=== PATIENT | male | born 1980 | race African-American/Black ===

== ENCOUNTER 2019-01-23 14:56 | Inpatient (IN) | payer MEDICAID ==
[~2019-01-23] VITALS: Ht 167.6 cm; Wt 68.8 kg
[2019-01-23 15:56] VITALS: BP 115/71
[2019-01-23 17:19] VITALS: BP 138/80
[2019-01-23] MEDS: HALOPERIDOL 5 MG TABLET PO PRN (17:27)
[2019-01-23] MEDS: LORazepam 2 MG TABLET PO PRN (17:27)
[2019-01-23] MEDS ORDERED: NICOTINE 14 MG/24 HOUR PATCH TD PRN (17:30)
[2019-01-23] MEDS ORDERED: GuaiFENesin/D-METHORPHAN [SUGAR-FREE] 200-20MG/10 ML SYRUP UDCUP PO PRN (17:30)
[2019-01-23] MEDS ORDERED: ALBUTEROL SULFATE HFA 90 MCG/PUFF 8 GM INHALER IH PRN (17:30)
[2019-01-23] MEDS ORDERED: LOPERAMIDE HCL 2 MG CAPSULE PO PRN (17:30)
[2019-01-23] MEDS ORDERED: ONDANSETRON HCL 4 MG TABLET PO PRN (17:30)
[2019-01-23] MEDS ORDERED: ACETAMINOPHEN 325 MG TABLET PO PRN (17:30)
[2019-01-23] MEDS ORDERED: PETROLATUM,WHITE 28 GM JELLY TP PRN (17:30)
[2019-01-23] MEDS ORDERED: MAGNESIUM HYDROXIDE SUSPENSION 30 ML UDCUP PO PRN (17:30)
[2019-01-23] MEDS ORDERED: DOCUSATE SODIUM 100 MG CAPSULE PO PRN (17:30)
[2019-01-23] MEDS ORDERED: CloNIDine HCL 0.1 MG TABLET PO PRN (17:30)
[2019-01-23] MEDS ORDERED: MAG HYDROX/AL HYDROX/SIMETH ES 30 ML SUSPENSION UDCUP PO PRN (17:30)
[2019-01-24 06:57] VITALS: BP 107/63
[2019-01-24 08:12] LABS: EOSINOPHILS % (AUTO) 2.5 % (1.0-6.0); HEMATOCRIT 41.3 % (41-53); HEMOGLOBIN 13.3 g/dL (13.5-17.5); LYMPHOCYTES # (AUTO) 1.9 K/uL (1.0-4.8); LYMPHOCYTES % (AUTO) 28.9 % (22.0-44.0); MEAN CORPUSCULAR HEMOGLOBIN 28.5 pg (26.0-34.0); MEAN CORPUSCULAR HGB CONC 32.3 G/dL (31.0-37.0); MEAN CORPUSCULAR VOLUME 88 fL (80-100); MONOCYTES # (AUTO) 0.6 K/uL (0.1-1.0); MONOCYTES % (AUTO) 8.7 % (2.0-9.0); NEUTROPHILS # (AUTO) 3.9 K/uL (1.8-7.7); NEUTROPHILS % (AUTO) 58.9 % (40.0-70.0); PLATELET COUNT (AUTO) 242 K/uL (150-450); RED BLOOD CELL COUNT(AUTO) 4.67 MIL/uL (4.50-5.90); RED CELL DISTRIBUTION WIDTH 14.6 % (11.5-14.5)
[2019-01-24 08:25] LABS: HEMOGLOBIN A1C 5.8 % (4.5-6.2)
[2019-01-24 08:54] LABS: ALANINE AMINOTRANSFERASE 19 U/L (12-78); ALBUMIN 3.6 g/dL (3.4-5.0); ALKALINE PHOSPHATASE 57 U/L (46-116); ANION GAP 7 mmol/L (8-16); ASPARTATE AMINOTRANSFERASE 18 U/L (15-37); BILIRUBIN,TOTAL 0.4 mg/dL (0.1-1.0); CALCIUM, TOTAL 9.3 mg/dL (8.8-10.5); CARBON DIOXIDE 28 mmol/L (22-29); CHLORIDE 105 mmol/L (98-107); CHOL/HDL RATIO 3.3 (4.2-7.3); CHOLESTEROL 119 mg/dL (131-200); CREATININE 0.88 mg/dL (0.60-1.30); GLOMERULAR FILTR. RATE CALC > 60 mL/min (>60); GLUCOSE,RANDOM 77 mg/dL (70-110); HDL CHOLESTEROL 36 mg/dL (40-60); LDL CHOL (CALC.) 74 mg/dL (0-130); POTASSIUM 4.6 mmol/L (3.5-5.1); SODIUM SERUM 140 mmol/L (136-145); THYROID STIMULATING HORMONE 2.63 uIU/mL (0.36-3.74); TOTAL PROTEIN, SERUM 7.1 g/dL (6.4-8.2); TRIGLYCERIDES 45 mg/dL (15-150); UREA NITROGEN, BLOOD 14 mg/dL (7-18)
[2019-01-24 09:21] VITALS: BP 108/61
[2019-01-24 10:59] VITALS: BP 124/68
[2019-01-24] MEDS: IBUPROFEN 400 MG TABLET PO PRN (11:00)
[2019-01-24] MEDS: RisperiDONE 1 MG TABLET PO SCH ×2 (11:21→16:55)
[2019-01-24 11:59] VITALS: BP 122/68
[2019-01-24] MEDS: HALOPERIDOL 5 MG TABLET PO PRN (16:55)
[2019-01-24] MEDS: LORazepam 2 MG TABLET PO PRN (16:55)
[2019-01-24 18:55] VITALS: BP 101/68
[2019-01-24] MEDS: ZOLPIDEM TARTRATE 10 MG TABLET PO PRN (20:28)
[2019-01-25 06:42] VITALS: BP 106/72
[2019-01-25 08:46] LABS: AMPHET/METH SCREEN,URINE NEGATIVE (NEGATIVE); BARBITURATE SCREEN, URINE NEGATIVE (NEGATIVE); BENZODIAZEPINES SCREEN,URINE NEGATIVE (NEGATIVE); CANNABINOID SCREEN,URINE NEGATIVE (NEGATIVE); COCAINE SCREEN,URINE NEGATIVE (NEGATIVE); METHADONE SCREEN, URINE NEGATIVE (NEGATIVE); OPIATE SCREEN,URINE NEGATIVE (NEGATIVE)
[2019-01-25 08:47] LABS: PHENCYCLIDINE SCREEN,URINE NEGATIVE (NEGATIVE)
[2019-01-25] MEDS: RisperiDONE 1 MG TABLET PO SCH ×2 (08:55→17:04)
[2019-01-25] MEDS: IBUPROFEN 400 MG TABLET PO PRN (08:55)
[2019-01-25 09:31] VITALS: BP 132/77
[2019-01-25 16:00] VITALS: BP 108/59
[2019-01-25] MEDS: LORazepam 2 MG TABLET PO PRN (17:04)
[2019-01-25] MEDS: HALOPERIDOL 5 MG TABLET PO PRN (17:04)
[2019-01-25] MEDS: ZOLPIDEM TARTRATE 10 MG TABLET PO PRN (20:40)
[2019-01-26 06:39] VITALS: BP 112/65
[2019-01-26] MEDS: RisperiDONE 1 MG TABLET PO SCH ×2 (08:31→16:46)
[2019-01-26 09:13] VITALS: BP 104/64
[2019-01-26 16:12] VITALS: BP 111/69
[2019-01-26] MEDS: LORazepam 2 MG TABLET PO PRN (16:47)
[2019-01-26] MEDS: HALOPERIDOL 5 MG TABLET PO PRN (16:47)
[2019-01-26] MEDS: ZOLPIDEM TARTRATE 10 MG TABLET PO PRN (20:17)
[2019-01-27 06:36] VITALS: BP 114/72
[2019-01-27] MEDS: RisperiDONE 1 MG TABLET PO SCH (08:26)
[2019-01-27 08:37] VITALS: BP 115/71
[2019-01-27] MEDS ORDERED: RISP1 PO ×2 (08:57→09:31)
== END 2019-01-27 13:47 | disposition home or self-care (01) | DRG 750 ==
LOC: B3A 16:14
PROVIDERS: ADMIT Psychiatry & Neurology Child & Adolescent Psychiatry; ATTEND Psychiatry & Neurology Child & Adolescent Psychiatry
DX: F25.1 Schizoaffective disorder, depressive type (principal); D64.9 Anemia, unspecified; K59.00 Constipation, unspecified; F41.9 Anxiety disorder, unspecified; F32.9 Major depressive disorder, single episode, unspecified; F19.10 Other psychoactive substance abuse, uncomplicated; Z71.51 Drug abuse counseling and surveillance of drug abuser
CPT/HCPCS: 80307; 83036; 84443; 86592